=== PATIENT | male | born 1940 | race Caucasian/White ===

== ENCOUNTER 2016-06-09 15:00 | Emergency (ER) | payer MEDICARE ==
[2016-06-09] MEDS ORDERED: methylPREDNISolone SUCCINATE 40 MG/ML VIAL IVP STA (15:42)
[2016-06-09] MEDS ORDERED: methylPREDNISolone SUCCINATE 40 MG/ML VIAL ONE (16:09)
[2016-06-09] MEDS ORDERED: IOPAMIDOL-300 100 ML VIAL IVP ONE (17:16)
[2016-06-09] MEDS ORDERED: SODIUM CHLORIDE FLUSH 0.9% 10 ML SYRINGE IVP PRN (17:37)
[2016-06-09] MEDS ORDERED: PANTOPRAZOLE 40 MG VIAL IVP SCH (18:00)
[2016-06-09] MEDS ORDERED: SODIUM CHLORIDE 0.9% 1,000 ML IV SCH (18:00)
[2016-06-09] MEDS ORDERED: SODIUM CHLORIDE FLUSH 0.9% 10 ML SYRINGE IVP SCH (22:00)
[2016-06-10] MEDS ORDERED: POLYETHYLENE GLYCOL 3350 17 GM PACKET PO SCH (09:00)
== END 2016-06-09 21:04 | disposition left against medical advice (07) ==
DX: K92.1 Melena (principal); K51.011 Ulcerative (chronic) pancolitis with rectal bleeding; D64.9 Anemia, unspecified; G20 Parkinson's disease; Z53.20 Procedure and treatment not carried out because of patient's decision for unspecified reasons
CPT/HCPCS: 36415; 36430; 74177; 80053; 83690; 85025; 85610; 86850; 86900; 86901; 86920; 96374; 99283; 99285; P9016; Q9967

== ENCOUNTER 2016-06-10 | Outpatient (CLI) | payer MEDICARE | END 2016-06-10 15:26 | disposition critical access hospital (66) | CPT/HCPCS: A0425; A0427 ==

== ENCOUNTER 2016-06-10 | Outpatient (CLI) | payer MEDICARE | END 2016-06-10 18:23 | disposition short-term general hospital (02) | DX: K92.1 Melena (principal) | CPT/HCPCS: A0170; A0425; A0427 ==

== ENCOUNTER 2016-06-10 15:46 | Emergency (ER) | payer MEDICARE | END 2016-06-10 18:20 | disposition short-term general hospital (02) | DX: K51.011 Ulcerative (chronic) pancolitis with rectal bleeding (principal) | CPT/HCPCS: 36415; 36430; 80053; 83605; 83690; 85025; 85610; 86850; 86900; 86901; 86920; 99284; 99291; P9016 ==

== ENCOUNTER 2017-01-07 07:18 | Outpatient (CLI) | payer MEDICARE ==
[2017-01-07 14:09] LABS: CALCIUM 8.6 mg/dL (8.5-10.3); CREATININE 0.8 mg/dL (0.6-1.2); POTASSIUM 3.6 mmol/L (3.5-5.0)
== END 2017-01-07 07:19 | disposition home or self-care (01) ==
LOC: LAB.F 07:18
PROVIDERS: ATTEND Internal Medicine Gastroenterology
DX: K50.80 Crohn's disease of both small and large intestine without complications (principal)
CPT/HCPCS: 36415; 80048; 86140

== ENCOUNTER 2017-04-30 08:00 | Outpatient (CLI) | payer MEDICARE ==
[2017-04-30 10:34] LABS: BASOPHILS # (AUTO) 0.1 10^3/uL (0.0-0.1); BASOPHILS % (AUTO) 1.2 %; EOSINOPHILS # (AUTO) 0.5 10^3/uL (0.0-0.7); EOSINOPHILS % (AUTO) 7.2 %; HGB - HEMOGLOBIN 11.2 g/dL (14.0-18.0); LYMPHOCYTES # (AUTO) 1.6 10^3/uL (1.5-3.5); MEAN CORPUSCULAR HEMOGLOBIN 29.7 pg (27.0-31.0); MEAN CORPUSCULAR HGB CONC 32.7 g/dL (32.0-36.0); MEAN CORPUSCULAR VOLUME 90.6 fL (80.0-94.0); MEAN PLATELET VOLUME 9.5 fL (7.4-11.4); MONOCYTES # (AUTO) 0.7 10^3/uL (0.0-1.0); MONOCYTES % (AUTO) 8.9 %; NEUTROPHILS # (AUTO) 4.7 10^3/uL (1.5-6.6); NEUTROPHILS % (AUTO) 61.7 %; PLT - PLATELET COUNT 378 10^3/uL (130-450); RED BLOOD COUNT 3.76 10^6/uL (4.70-6.10); RED CELL DISTRIBUTION WIDTH 16.5 % (12.0-15.0); WHITE BLOOD COUNT 7.5 x10^3/uL (4.8-10.8)
[2017-04-30 11:05] LABS: PLATELET ESTIMATE, MANUAL NORMAL (130-450,000) (NORMAL); PLATELET MORPHOLOGY 1+ LARGE PLATELETS (NORMAL); RBC MORPHOLOGY (MULTIPLE) NORMAL APPEARANCE (NORMAL)
== END 2017-04-30 08:01 | disposition home or self-care (01) ==
LOC: LAB.F 08:00
PROVIDERS: ATTEND Internal Medicine Gastroenterology
DX: K50.80 Crohn's disease of both small and large intestine without complications (principal); R74.8 Abnormal levels of other serum enzymes; D50.0 Iron deficiency anemia secondary to blood loss (chronic)
CPT/HCPCS: 36415; 85025

== ENCOUNTER 2017-10-25 08:03 | Outpatient (CLI) | payer MEDICARE ==
[2017-10-25 13:06] LABS: ALBUMIN/GLOBULIN RATIO 0.4 (1.0-2.2); BILIRUBIN,TOTAL 1.6 mg/dL (0.2-1.0); CALCIUM 7.8 mg/dL (8.5-10.3); CREATININE 0.9 mg/dL (0.6-1.2)
== END 2017-10-25 08:04 | disposition home or self-care (01) ==
LOC: LAB.F 08:03
PROVIDERS: ATTEND Internal Medicine Gastroenterology
DX: R74.8 Abnormal levels of other serum enzymes (principal); K50.80 Crohn's disease of both small and large intestine without complications; D64.9 Anemia, unspecified
CPT/HCPCS: 36415; 80053; 85610

== ENCOUNTER 2017-10-28 12:45 | Outpatient (CLI) | payer MEDICARE ==
[2017-10-28 19:11] LABS: % IRON SATURATION 6 % (20-50); IRON 18 ug/dL (45-182); TOTAL IRON BINDING CAPACITY 322 ug/dL (250-450); TRANSFERRIN 230 mg/dL (180-329)
[2017-10-28 19:15] LABS: THYROID STIMULATING HORMONE 4.45 uIU/mL (0.34-5.60)
[2017-10-28 19:22] LABS: FERRITIN 17.9 ng/mL (23.9-336.2)
== END 2017-10-28 12:46 | disposition home or self-care (01) ==
LOC: LAB.WCP 12:45
PROVIDERS: ATTEND Family Medicine
DX: D64.9 Anemia, unspecified (principal); K51.90 Ulcerative colitis, unspecified, without complications; I50.9 Heart failure, unspecified; R74.8 Abnormal levels of other serum enzymes
CPT/HCPCS: 82607; 82728; 83540; 83880; 84443; 84466

== ENCOUNTER 2017-11-01 08:17 | Outpatient (CLI) | payer MEDICARE ==
[2017-11-01 12:13] LABS: BASOPHILS % (AUTO) 2.4 %; EOSINOPHILS % (AUTO) 3.6 %; HGB - HEMOGLOBIN 9.2 g/dL (14.0-18.0); LYMPHOCYTES % (AUTO) 22.7 %; MEAN CORPUSCULAR HEMOGLOBIN 30.5 pg (27.0-31.0); MEAN CORPUSCULAR HGB CONC 31.4 g/dL (32.0-36.0); MEAN CORPUSCULAR VOLUME 97.3 fL (80.0-94.0); MEAN PLATELET VOLUME 8.9 fL (7.4-11.4); MONOCYTES % (AUTO) 9.4 %; NEUTROPHILS % (AUTO) 61.9 %; PLT - PLATELET COUNT 493 10^3/uL (130-450); RED BLOOD COUNT 3.02 10^6/uL (4.70-6.10); RED CELL DISTRIBUTION WIDTH 14.5 % (12.0-15.0)
[2017-11-01 12:35] LABS: ABNORMAL LYMPHS % (MANUAL) 0 %
[2017-11-01 13:20] LABS: BAND NEUTROPHILS % (MANUAL) 3 %; EOSINOPHILS # (MANUAL) 0.2 10^3/uL (0-0.7); LYMPHOCYTES # (MANUAL) 1.6 10^3/uL (1.5-3.5); LYMPHOCYTES % (MANUAL) 18 %; MONOCYTES # (MANUAL) 0.9 10^3/uL (0.0-1.0); NEUTROPHILS # (MANUAL) 6.3 10^3/uL (1.5-6.6); NEUTROPHILS % (MANUAL) 67 %
[2017-11-01 13:22] LABS: PLATELET ESTIMATE, MANUAL INCREASED (>450,000) (NORMAL)
[2017-11-01 13:23] LABS: DIFFERENTIAL COMMENT MANUAL DIFFERENTIAL; PLATELET MORPHOLOGY 1+ GIANT PLATELETS (NORMAL)
== END 2017-11-01 08:18 | disposition home or self-care (01) ==
LOC: LAB.F 08:17
PROVIDERS: ATTEND Internal Medicine Gastroenterology
DX: R74.8 Abnormal levels of other serum enzymes (principal); D64.9 Anemia, unspecified; K50.80 Crohn's disease of both small and large intestine without complications
CPT/HCPCS: 36415; 85025

== ENCOUNTER 2017-11-05 07:46 | Outpatient (CLI) | payer MEDICARE ==
--- NOTE | 2017-11-05 11:07 | Ultrasound Report ---
Procedure Date: 11/05/2017 Accession Number: [id number] / [id number] Procedure: US - Duplex Ext Veins Left CPT Code: FULL RESULT: EXAM: Duplex Ext Veins Left DATE: 11/05/2017 10:07 AM CLINICAL HISTORY: PEDAL EDEMA/ELEVATED LIVER ENZYMES, ULC COLITIS COMPARISON: None. TECHNIQUE: Real-time sonographic vascular imaging was performed by the personal service workers through the lower extremity utilizing both color-flow and Doppler spectral analysis. Multiple field service representative static images were saved for review. FINDINGS: Common Femoral Vein (CFV): Normal. Superficial Femoral Vein (SFV) Prox: Normal. Superficial Femoral Vein (SFV) Mid: Normal. Superficial Femoral Vein (SFV) Dist: Normal. Popliteal Vein: Normal. Posterior Tibial Veins: Normal. Peroneal Veins: Normal. Other: Incidental note of subcutaneous edema in the calf. IMPRESSION: No evidence for deep venous thrombosis. RADIA
--- NOTE | 2017-11-05 12:15 | Ultrasound Report ---
Procedure Date: 11/05/2017 Accession Number: [id number] / [id number] Procedure: US - Abdomen Complete CPT Code: FULL RESULT: EXAM: Abdomen Complete DATE: 11/05/2017 9:30 AM CLINICAL HISTORY: PEDAL EDEMA/ELEVATED LIVER ENZYMES, ULC COLITIS COMPARISON: CT 06/09/2016 TECHNIQUE: Real-time scanning was performed with static images obtained. FINDINGS: Liver: Heterogeneous hepatic echotexture. 15.6 cm. Main portal vein flow: Hepatopetal. Gallbladder: Sludge within the lumen. No shadowing stone identified. No wall thickening or pericholecystic fluid. Biliary System: Common bile duct measures 14 mm. Stable intra and extrahepatic biliary prominence. Sludge within the common bile duct. Pancreas: 2 small hypoechoic nodules, in the body measuring 1.0 x 0.7 x 0.5 cm, and in the head measuring 1.6 x 0.8 x 0.7 cm, likely representing small pancreatic cysts. If clinically warranted, consider MRI for further evaluation. Kidneys: Right: 10.7 cm longitudinally. 6 mm cortical cyst. Possible calculi. No hydronephrosis. Left: 10.0 cm longitudinally. 8 mm parapelvic cyst. Possible calculi. No hydronephrosis. Spleen: Diminutive, measuring 4 cm. No focal mass. Aorta and Inferior Vena Cava: Unremarkable. IMPRESSION: Sludge within the gallbladder and common bile duct. Stable biliary prominence. Tiny hypoechoic nodules in the pancreas, which may represent pancreatic cysts. Consider MRI for further evaluation. Bilateral renal calculi, without hydronephrosis. RADIA
== END 2017-11-05 07:47 | disposition home or self-care (01) ==
LOC: DI 07:46
PROVIDERS: ATTEND Family Medicine
DX: R60.0 Localized edema (principal); R74.8 Abnormal levels of other serum enzymes; K51.90 Ulcerative colitis, unspecified, without complications; N20.0 Calculus of kidney
CPT/HCPCS: 76700

== ENCOUNTER 2017-11-14 09:03 | Day surgery (SDC) | payer MEDICARE ==
[2017-11-14] MEDS ORDERED: LACTATED RINGERS 1,000 ML IV ONE ×2 (09:46→10:51)
[2017-11-14] MEDS ORDERED: fentaNYL 100 MCG/2 ML VIAL IVP ONE (10:04)
[2017-11-14] MEDS ORDERED: MIDAZOLAM 2 MG/2 ML VIAL IVP ONE (10:04)
[2017-11-14 11:30] VITALS: BP 105/66
== END 2017-11-14 09:04 | disposition home or self-care (01) ==
LOC: SDS 09:03
PROVIDERS: ATTEND Internal Medicine Gastroenterology
PROC: 0DBM8ZX Excision of Descending Colon, Via Natural or Artificial Opening Endoscopic, Diagnostic (ICD-10-PCS; 2017-11-14)
PROC: 0DBE8ZX Excision of Large Intestine, Via Natural or Artificial Opening Endoscopic, Diagnostic (ICD-10-PCS; 2017-11-14)
PROC: 0DBB8ZZ Excision of Ileum, Via Natural or Artificial Opening Endoscopic (ICD-10-PCS; principal; 2017-11-14 10:00)
DX: K50.80 Crohn's disease of both small and large intestine without complications (principal); D13.39 Benign neoplasm of other parts of small intestine; D50.9 Iron deficiency anemia, unspecified; G20 Parkinson's disease; Z79.1 Long term (current) use of non-steroidal anti-inflammatories (NSAID); Z79.899 Other long term (current) drug therapy
CPT/HCPCS: 45380; 45385; J7120

== ENCOUNTER 2017-12-20 07:46 | Outpatient (CLI) | payer MEDICARE ==
[2017-12-20 10:58] LABS: BASOPHILS # (AUTO) 0.1 10^3/uL (0.0-0.1); BASOPHILS % (AUTO) 0.7 %; EOSINOPHILS % (AUTO) 0.3 %; HGB - HEMOGLOBIN 10.4 g/dL (14.0-18.0); LYMPHOCYTES # (AUTO) 1.3 10^3/uL (1.5-3.5); LYMPHOCYTES % (AUTO) 12.5 %; MEAN CORPUSCULAR HEMOGLOBIN 30.5 pg (27.0-31.0); MEAN CORPUSCULAR HGB CONC 32.6 g/dL (32.0-36.0); MEAN CORPUSCULAR VOLUME 93.5 fL (80.0-94.0); MEAN PLATELET VOLUME 9.3 fL (7.4-11.4); MONOCYTES # (AUTO) 0.8 10^3/uL (0.0-1.0); MONOCYTES % (AUTO) 7.6 %; NEUTROPHILS % (AUTO) 78.9 %; PLT - PLATELET COUNT 312 10^3/uL (130-450); RED BLOOD COUNT 3.42 10^6/uL (4.70-6.10); WHITE BLOOD COUNT 10.2 x10^3/uL (4.8-10.8)
== END 2017-12-20 07:47 | disposition home or self-care (01) ==
LOC: LAB.F 07:46
PROVIDERS: ATTEND Internal Medicine Gastroenterology
DX: D50.0 Iron deficiency anemia secondary to blood loss (chronic) (principal)
CPT/HCPCS: 36415; 85025

== ENCOUNTER 2018-01-17 07:26 | Outpatient (CLI) | payer MEDICARE | END 2018-01-17 07:27 | disposition home or self-care (01) | LOC: LAB.F 07:26 | PROVIDERS: ATTEND Internal Medicine Gastroenterology | DX: K50.80 Crohn's disease of both small and large intestine without complications (principal); D50.0 Iron deficiency anemia secondary to blood loss (chronic); R74.8 Abnormal levels of other serum enzymes ==

== ENCOUNTER 2018-05-19 09:37 | Outpatient (CLI) | payer MEDICARE ==
[2018-05-19 18:22] LABS: BASOPHILS % (AUTO) 4.7 %; HGB - HEMOGLOBIN 11.2 g/dL (14.0-18.0); LYMPHOCYTES % (AUTO) 34.8 %; MEAN CORPUSCULAR HEMOGLOBIN 32.1 pg (27.0-31.0); MEAN CORPUSCULAR HGB CONC 31.5 g/dL (32.0-36.0); MEAN CORPUSCULAR VOLUME 102.1 fL (80.0-94.0); MEAN PLATELET VOLUME 10.6 fL (7.4-11.4); MONOCYTES % (AUTO) 11.4 %; NEUTROPHILS % (AUTO) 45.1 %; PLT - PLATELET COUNT 294 10^3/uL (130-450); RED BLOOD COUNT 3.47 10^6/uL (4.70-6.10); RED CELL DISTRIBUTION WIDTH 14.6 % (12.0-15.0); WHITE BLOOD COUNT 6.5 x10^3/uL (4.8-10.8)
[2018-05-19 18:23] LABS: ABNORMAL LYMPHS % (MANUAL) 0 %; BAND NEUTROPHILS % (MANUAL) 0 %
[2018-05-19 18:29] LABS: ALBUMIN 2.3 g/dL (3.2-5.5); ALBUMIN/GLOBULIN RATIO 0.4 (1.0-2.2); BILIRUBIN,TOTAL 8.5 mg/dL (0.2-1.0); CALCIUM 8.5 mg/dL (8.5-10.3); CREATININE 0.7 mg/dL (0.6-1.2); CRP - C-REACTIVE PROTEIN 5.9 mg/dL (0-1.0); TOTAL PROTEIN 7.8 g/dL (6.7-8.2)
[2018-05-19 20:08] LABS: EOSINOPHILS # (MANUAL) 0.4 10^3/uL (0-0.7); LYMPHOCYTES # (MANUAL) 1.2 10^3/uL (1.5-3.5); LYMPHOCYTES % (MANUAL) 18 %; MONOCYTES # (MANUAL) 0.5 10^3/uL (0.0-1.0); NEUTROPHILS # (MANUAL) 4.4 10^3/uL (1.5-6.6); NEUTROPHILS % (MANUAL) 68 %
[2018-05-19 20:20] LABS: DIFFERENTIAL COMMENT MANUAL DIFFERENTIAL; PLATELET ESTIMATE, MANUAL NORMAL (130-450,000) (NORMAL)
== END 2018-05-19 09:38 | disposition home or self-care (01) ==
LOC: LAB.F 09:37
PROVIDERS: ATTEND Internal Medicine Gastroenterology
DX: K50.80 Crohn's disease of both small and large intestine without complications (principal); D50.0 Iron deficiency anemia secondary to blood loss (chronic); R74.8 Abnormal levels of other serum enzymes
CPT/HCPCS: 36415; 80053; 85025; 86140

== ENCOUNTER 2018-06-30 08:33 | Outpatient (CLI) | payer MEDICARE ==
[2018-06-30 10:36] LABS: BASOPHILS # (AUTO) 0.1 10^3/uL (0.0-0.1); BASOPHILS % (AUTO) 0.9 %; EOSINOPHILS # (AUTO) 0.2 10^3/uL (0.0-0.7); EOSINOPHILS % (AUTO) 2.6 %; HGB - HEMOGLOBIN 9.6 g/dL (14.0-18.0); LYMPHOCYTES # (AUTO) 4.3 10^3/uL (1.5-3.5); LYMPHOCYTES % (AUTO) 65.8 %; MEAN CORPUSCULAR HEMOGLOBIN 29.6 pg (27.0-31.0); MEAN CORPUSCULAR HGB CONC 32.3 g/dL (32.0-36.0); MEAN CORPUSCULAR VOLUME 91.7 fL (80.0-94.0); MEAN PLATELET VOLUME 10.2 fL (7.4-11.4); MONOCYTES # (AUTO) 0.6 10^3/uL (0.0-1.0); NEUTROPHILS # (AUTO) 1.4 10^3/uL (1.5-6.6); NEUTROPHILS % (AUTO) 21.7 %; PLT - PLATELET COUNT 322 10^3/uL (130-450); RED BLOOD COUNT 3.24 10^6/uL (4.70-6.10); RED CELL DISTRIBUTION WIDTH 16.1 % (12.0-15.0); WHITE BLOOD COUNT 6.6 x10^3/uL (4.8-10.8)
[2018-06-30 10:40] LABS: INR 1.2 (0.8-1.2); PT - PROTHROMBIN TIME 13.1 secs (9.9-12.6)
[2018-06-30 11:10] LABS: ALBUMIN 2.2 g/dL (3.2-5.5); ALBUMIN/GLOBULIN RATIO 0.4 (1.0-2.2); BILIRUBIN,TOTAL 6.2 mg/dL (0.2-1.0); CREATININE 0.8 mg/dL (0.6-1.2); TOTAL PROTEIN 7.5 g/dL (6.7-8.2)
[2018-06-30 11:24] LABS: PLATELET ESTIMATE, MANUAL NORMAL (130-450,000) (NORMAL); PLATELET MORPHOLOGY 1+ GIANT PLATELETS (NORMAL)
[2018-06-30 11:25] LABS: RBC MORPHOLOGY (MULTIPLE) 2+ TARGET CELLS (NORMAL)
== END 2018-06-30 08:34 | disposition home or self-care (01) ==
LOC: LAB.F 08:33
PROVIDERS: ATTEND Internal Medicine Gastroenterology
DX: K83.1 Obstruction of bile duct (principal); K50.80 Crohn's disease of both small and large intestine without complications; D50.0 Iron deficiency anemia secondary to blood loss (chronic); R74.8 Abnormal levels of other serum enzymes; R60.0 Localized edema
CPT/HCPCS: 36415; 80053; 85025; 85610

== ENCOUNTER 2018-07-25 08:00 | Outpatient (CLI) | payer MEDICARE ==
[2018-07-25 10:52] LABS: ALBUMIN 2.1 g/dL (3.2-5.5); ALBUMIN/GLOBULIN RATIO 0.4 (1.0-2.2); BILIRUBIN,TOTAL 5.1 mg/dL (0.2-1.0); CALCIUM 8.1 mg/dL (8.5-10.3); CREATININE 0.8 mg/dL (0.6-1.2); INR 1.2 (0.8-1.2); PT - PROTHROMBIN TIME 13.5 secs (9.9-12.6); TOTAL PROTEIN 7.3 g/dL (6.7-8.2)
[2018-07-25 11:12] LABS: BASOPHILS % (AUTO) 2.4 %; EOSINOPHILS % (AUTO) 1.7 %; HGB - HEMOGLOBIN 8.6 g/dL (14.0-18.0); LYMPHOCYTES % (AUTO) 71.6 %; MEAN CORPUSCULAR HEMOGLOBIN 27.1 pg (27.0-31.0); MEAN CORPUSCULAR HGB CONC 31.5 g/dL (32.0-36.0); MEAN CORPUSCULAR VOLUME 86.1 fL (80.0-94.0); MEAN PLATELET VOLUME 10.2 fL (7.4-11.4); NEUTROPHILS % (AUTO) 19.3 %; PLT - PLATELET COUNT 346 10^3/uL (130-450); RED BLOOD COUNT 3.17 10^6/uL (4.70-6.10); RED CELL DISTRIBUTION WIDTH 16.8 % (12.0-15.0); WHITE BLOOD COUNT 6.2 x10^3/uL (4.8-10.8)
[2018-07-25 12:21] LABS: ABNORMAL LYMPHS % (MANUAL) 0 %
[2018-07-25 12:22] LABS: BAND NEUTROPHILS % (MANUAL) 1 %; BASOPHILS # (MANUAL) 0.1 10^3/uL (0-0.1); BASOPHILS % (MANUAL) 1 %; EOSINOPHILS # (MANUAL) 0.4 10^3/uL (0-0.7); LYMPHOCYTES # (MANUAL) 1.6 10^3/uL (1.5-3.5); LYMPHOCYTES % (MANUAL) 23 %; MONOCYTES # (MANUAL) 0.6 10^3/uL (0.0-1.0); NEUTROPHILS # (MANUAL) 3.6 10^3/uL (1.5-6.6); NEUTROPHILS % (MANUAL) 57 %
[2018-07-25 12:23] LABS: PLATELET ESTIMATE, MANUAL NORMAL (130-450,000) (NORMAL); PLATELET MORPHOLOGY RARE GIANT PLATELETS (NORMAL)
[2018-07-25 12:24] LABS: DIFFERENTIAL COMMENT MANUAL DIFFERENTIAL
== END 2018-07-25 08:01 | disposition home or self-care (01) ==
LOC: LAB.F 08:00
PROVIDERS: ATTEND Internal Medicine Gastroenterology
DX: K83.1 Obstruction of bile duct (principal); K50.80 Crohn's disease of both small and large intestine without complications; D50.0 Iron deficiency anemia secondary to blood loss (chronic); R74.8 Abnormal levels of other serum enzymes
CPT/HCPCS: 36415; 80053; 82306; 84446; 84590; 85025; 85610

== ENCOUNTER 2018-08-08 08:33 | Outpatient (CLI) | payer MEDICARE ==
[2018-08-08 10:49] LABS: EOSINOPHILS % (AUTO) 1.2 %; HGB - HEMOGLOBIN 9.2 g/dL (14.0-18.0); LYMPHOCYTES % (AUTO) 68.6 %; MEAN CORPUSCULAR HGB CONC 30.9 g/dL (32.0-36.0); MEAN CORPUSCULAR VOLUME 84.3 fL (80.0-94.0); MEAN PLATELET VOLUME 9.9 fL (7.4-11.4); MONOCYTES % (AUTO) 16.1 %; NEUTROPHILS % (AUTO) 14.1 %; PLT - PLATELET COUNT 378 10^3/uL (130-450); RED BLOOD COUNT 3.54 10^6/uL (4.70-6.10); RED CELL DISTRIBUTION WIDTH 17.6 % (12.0-15.0); WHITE BLOOD COUNT 7.3 x10^3/uL (4.8-10.8)
[2018-08-08 10:50] LABS: ABNORMAL LYMPHS % (MANUAL) 0 %; BAND NEUTROPHILS % (MANUAL) 0 %; INR 1.1 (0.8-1.2); PT - PROTHROMBIN TIME 12.8 secs (9.9-12.6)
[2018-08-08 11:08] LABS: ALBUMIN 2.3 g/dL (3.2-5.5); ALBUMIN/GLOBULIN RATIO 0.4 (1.0-2.2); BILIRUBIN,TOTAL 5.3 mg/dL (0.2-1.0); CALCIUM 8.4 mg/dL (8.5-10.3); CREATININE 0.7 mg/dL (0.6-1.2); TOTAL PROTEIN 7.9 g/dL (6.7-8.2)
[2018-08-08 11:22] LABS: BASOPHILS # (MANUAL) 0.1 10^3/uL (0-0.1); BASOPHILS % (MANUAL) 2 %; EOSINOPHILS # (MANUAL) 0.2 10^3/uL (0-0.7); LYMPHOCYTES # (MANUAL) 1.9 10^3/uL (1.5-3.5); LYMPHOCYTES % (MANUAL) 26 %; MONOCYTES # (MANUAL) 0.3 10^3/uL (0.0-1.0); NEUTROPHILS # (MANUAL) 4.7 10^3/uL (1.5-6.6); NEUTROPHILS % (MANUAL) 65 %
[2018-08-08 11:24] LABS: DIFFERENTIAL COMMENT MANUAL DIFFERENTIAL; PLATELET ESTIMATE, MANUAL NORMAL (130-450,000) (NORMAL)
[2018-08-11 21:48] LABS: ALPHA-TOCOPHEROL 14.9 mg/L (5.7-19.9); BETA-GAMMA-TOCOPHEROL <1.0 mg/L (< 4.4)
== END 2018-08-08 08:34 | disposition home or self-care (01) ==
LOC: LAB.F 08:33
PROVIDERS: ATTEND Internal Medicine Gastroenterology
DX: K83.1 Obstruction of bile duct (principal); D50.0 Iron deficiency anemia secondary to blood loss (chronic); R74.8 Abnormal levels of other serum enzymes; K50.80 Crohn's disease of both small and large intestine without complications
CPT/HCPCS: 36415; 80053; 82306; 84446; 84590; 85025; 85610

== ENCOUNTER 2019-03-22 13:36 | Emergency (ER) | payer MEDICARE ==
[2019-03-22] MEDS ORDERED: TRANEXAMIC ACID 1,000 MG/10 ML VIAL NAS STA (15:10)
[2019-03-22 15:24] LABS: BASOPHILS # (AUTO) 0.1 10^3/uL (0.0-0.1); BASOPHILS % (AUTO) 0.6 %; MONOCYTES # (AUTO) 0.9 10^3/uL (0.0-1.0)
[2019-03-22 15:28] LABS: EOSINOPHILS # (AUTO) 0.1 10^3/uL (0.0-0.7); EOSINOPHILS % (AUTO) 1.1 %; LYMPHOCYTES # (AUTO) 1.4 10^3/uL (1.5-3.5); LYMPHOCYTES % (AUTO) 17.7 %; MEAN CORPUSCULAR HEMOGLOBIN 30.6 pg (27.0-31.0); MEAN CORPUSCULAR HGB CONC 32.2 g/dL (32.0-36.0); MEAN CORPUSCULAR VOLUME 95.3 fL (80.0-94.0); MEAN PLATELET VOLUME 11.8 fL (7.4-11.4); MONOCYTES % (AUTO) 11.8 %; NEUTROPHILS # (AUTO) 5.4 10^3/uL (1.5-6.6); NEUTROPHILS % (AUTO) 68.4 %; PLT - PLATELET COUNT 300 10^3/uL (130-450); RED BLOOD COUNT 3.59 10^6/uL (4.70-6.10); RED CELL DISTRIBUTION WIDTH 19.7 % (12.0-15.0)
[2019-03-22 15:32] LABS: INR 2.4 (0.8-1.2); PT - PROTHROMBIN TIME 25.5 secs (9.9-12.6)
[2019-03-22] MEDS ORDERED: PHYTONADIONE 10 MG/ML AMP SUBQ STA (15:43)
[2019-03-22 16:03] LABS: ALBUMIN 2.6 g/dL (3.2-5.5); ALBUMIN/GLOBULIN RATIO 0.5 (1.0-2.2); BILIRUBIN,TOTAL 9.6 mg/dL (0.2-1.0); CALCIUM 8.1 mg/dL (8.5-10.3); CREATININE 0.8 mg/dL (0.6-1.2); TOTAL PROTEIN 7.9 g/dL (6.7-8.2)
[2019-03-22 16:21] LABS: PLATELET ESTIMATE, MANUAL NORMAL (130-450,000) (NORMAL); PLATELET MORPHOLOGY NORMAL APPEARANCE (NORMAL)
[2019-03-22 16:22] LABS: DIFFERENTIAL COMMENT MANUAL=AUTO DIFF
--- NOTE | 2019-03-22 16:34 | ED Physician Documentation ---
PD HPI HEENT - Stated complaint Stated Complaint: BLEEDING MOUTH - Chief complaint Chief Complaint: General - History obtained from History obtained from: Patient, Family - History of Present Illness Timing - onset: Last night Timing - duration: Hours Timing - details: Gradual onset, Still present Location: Mouth Improves: Other (pressure with gauze) Associated symptoms: No: Fever, Congestion, Rhinorrhea, Trismus, Unable to swallow, Swollen nodes, Facial swelling, Headache, Cough Similar symptoms before: Has not had sx before Recently seen: Other (preparing for ERCP) - Additional information Additional information: 78-year-old male with history of Crohn's disease and gallbladder cancer has had his gallbladder out in September of this year and he has cholestasis, has had a stent in place, the stent failed, and he is in preparation to get another stent placed. He has now developed some bleeding from his mouth. He has not had this happen to him previously. He felt that he had a broken tooth last month and today he thinks this is coming from the abraded area in his mouth. He has been putting gauze in it overnight and is only been able to get the area to stop if he lays on his left side. He is having bleeding from the inside of his right mouth. Review of Systems Constitutional: denies: Fever Eyes: denies: Decreased vision Ears: denies: Ear pain Nose: denies: Rhinorrhea / runny nose, Congestion Throat: reports: Dental pain / toothache, Oral lesions / sores, Other (bleeding from the gums) Cardiac: denies: Chest pain / pressure, Palpitations Respiratory: denies: Dyspnea, Cough GI: denies: Nausea, Vomiting PD PAST MEDICAL HISTORY - Past Medical History Past Medical History: Yes Cardiovascular: None Respiratory: None Neuro: Parkinson's, Tremors Endocrine/Autoimmune: None GI: GI bleed : None HEENT: Chronic hearing loss Psych: None Musculoskeletal: Osteoarthritis, Other Derm: None - Past Surgical History Past Surgical History: Yes General: Colonoscopy Ortho: Other - Present Medications Home Medications: Ambulatory Orders Medication Instructions Recorded Confirmed Ascorbic Acid [Vitamin C] 1 tab PO DAILY 03/14/16 12/10/17 Centrum Silver 1 tab PO DAILY 03/14/16 12/10/17 Ferrous Sulfate 1 tab PO DAILY 03/14/16 12/10/17 Potassium Chloride [Micro-K] 1 tab PO DAILY PRN 03/14/16 12/10/17 Carbidopa/Levodopa 2 each PO TID 11/13/17 12/10/17 [Carbidopa-Levodopa 10-100 Tab] Furosemide [Lasix] 1 - 2 tab PO PRN PRN 11/13/17 12/10/17 Glucosamine Sulfate 500 mg PO DAILY 11/13/17 12/10/17 Acetaminophen [Tylenol Extra 500 mg PO BID 12/10/17 12/10/17 Strength] Balsalazide Disodium 2 cap ORAL BID 12/10/17 12/10/17 Ferrous Sulfate 15 mg PO DAILY 12/10/17 12/10/17 predniSONE [Prednisone] 40 mg PO DAILY 12/10/17 12/10/17 - Allergies Allergies/Adverse Reactions: Allergies Allergy/AdvReac Type Severity Reaction Status Date / Time NSAIDS (Non-Steroidal AdvReac Severe Unknown Verified 12/10/17 09:29 Anti-Inflamma - Social History Does the pt smoke?: No Smoking Status: Never smoker Does the pt drink ETOH?: No Does the pt have substance abuse?: No - Immunizations Immunizations are current?: Yes - POLST Patient has POLST: Yes PD ED PE NORMAL - Vitals Vital signs reviewed: Yes (normal ) - General General: Alert and oriented X 3, No acute distress, Well developed/nourished - HEENT HEENT: Atraumatic, PERRL, EOMI, Other (There is scleral iterus present. There is bleeding in the oral cavity initially difficult to figure where this is coming from as it is in all the crevises of the teeth. eventually it appears the main site is from the subligual area. ) - Neck Neck: Supple, no meningeal sign, No bony TTP - Cardiac Cardiac: RRR, No murmur - Respiratory Respiratory: No respiratory distress, Clear bilaterally - Derm Derm: Warm and dry, Other (jaundiced) Results - Vitals Vitals: Vital Signs - 24 hr 03/22/19 13:47 Temperature 36.8 C Heart Rate 87 Respiratory 18 Rate Blood Pressure 108/79 O2 Saturation 98 Oxygen O2 Source Room air - Labs Labs: Laboratory Tests 03/22/19 03/22/19 03/22/19 15:20 15:20 15:20 WBC 8.0 RBC 3.59 L Hgb 11.0 L Hct 34.2 L MCV 95.3 H MCH 30.6 MCHC 32.2 RDW 19.7 H Plt Count 300 MPV 11.8 H Neut # (Auto) 5.4 Lymph # (Auto) 1.4 L Lamar # (Auto) 0.9 Eos # (Auto) 0.1 Baso # (Auto) 0.1 Absolute Nucleated RBC 0.00 Band Neuts % (Manual) Not Reportable Abnorm Lymph % (Manual) Not Reportable Nucleated RBC % 0.0 Neutrophils # (Manual) Not Reportable Lymphocytes # (Manual) Not Reportable Monocytes # (Manual) Not Reportable Eosinophils # (Manual) Not Reportable Basophils # (Manual) Not Reportable Differential Comment MANUAL=AUTO DIFF WBC Morphology NORMAL APPEARANCE Platelet Estimate NORMAL (130-450,000) Platelet Morphology NORMAL APPEARANCE RBC Morph Micro Appear 1+ TARGET CELLS PT 25.5 H INR 2.4 H Sodium 135 Potassium 3.8 Chloride 103 Carbon Dioxide 28 Anion Gap 4.0 L BUN 20 Creatinine 0.8 Estimated GFR (MDRD) 94 Glucose 107 H Calcium 8.1 L Total Bilirubin 9.6 H AST 153 H ALT 33 Alkaline Phosphatase 1286 H Total Protein 7.9 Albumin 2.6 L Globulin 5.3 H Albumin/Globulin Ratio 0.5 L Lipase 35 PD MEDICAL DECISION MAKING - ED course Complexity details: reviewed old records, reviewed results, re-evaluated patient, considered differential, d/w patient, d/w family ED course: 78-year-old male with 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 His mouth is packed with gauze and tranexamic acid is applied and he is subsequently given dental rolls which appear to be more effective than any other method. He is able good control of his bleeding. He is found to have an elevated INR but the level is only 2.5 and he is administered 10 mg of vitamin K subcutaneously. His hematocrit is higher than what he is brought in as his most recent blood work from several weeks ago. He is reassured and instructed to place pressure against bleeding if it recurs and he is given a package of dental rolls. Departure - Departure Disposition: 01 Home, Self Care Clinical Impression: Gingival bleeding Condition: Stable Instructions: First Aid Bleeding, Gingivitis Follow-Up: Anthony Zee MD [Primary Care Provider] - Comments: Today your "INR" was elevated to 2.5 and this is a measure of your ability to clot. Normal is 1.0 and dangerous is 7. When it is elevated it is harder to stop bleeding. You will need to apply direct pressure for a longer period of time. We have given you a shot of vitamin K today and this should help.
[2019-03-22 16:44] VITALS: BP 106/74
== END 2019-03-22 16:46 | disposition home or self-care (01) ==
LOC: ED 13:36
DX: K06.8 Other specified disorders of gingiva and edentulous alveolar ridge (principal); K13.79 Other lesions of oral mucosa; R79.1 Abnormal coagulation profile; K71.0 Toxic liver disease with cholestasis; Z85.09 Personal history of malignant neoplasm of other digestive organs; G20 Parkinson's disease
CPT/HCPCS: 36415; 80053; 83690; 85025; 85610; 96372; 99283; 99284

== ENCOUNTER 2019-06-09 07:50 | Outpatient (CLI) | payer MEDICARE ==
[2019-06-09 10:48] LABS: ALBUMIN 2.1 g/dL (3.2-5.5); BILIRUBIN,DIRECT 7.1 mg/dL (0.1-0.5); BILIRUBIN,TOTAL 11.9 mg/dL (0.2-1.0); TOTAL PROTEIN 7.4 g/dL (6.7-8.2)
== END 2019-06-09 07:51 | disposition home or self-care (01) ==
LOC: LAB.S 07:50
PROVIDERS: ATTEND Internal Medicine
DX: C23 Malignant neoplasm of gallbladder (principal); K83.1 Obstruction of bile duct
CPT/HCPCS: 36415; 80076

== ENCOUNTER 2019-07-23 07:37 | Outpatient (CLI) | payer MEDICARE ==
[2019-07-23 09:51] LABS: BASOPHILS # (AUTO) 0.1 10^3/uL (0.0-0.1); BASOPHILS % (AUTO) 0.7 %; EOSINOPHILS # (AUTO) 0.2 10^3/uL (0.0-0.7); EOSINOPHILS % (AUTO) 1.7 %; HGB - HEMOGLOBIN 10.7 g/dL (14.0-18.0); LYMPHOCYTES # (AUTO) 1.4 10^3/uL (1.5-3.5); MEAN CORPUSCULAR HEMOGLOBIN 30.2 pg (27.0-31.0); MEAN CORPUSCULAR HGB CONC 32.9 g/dL (32.0-36.0); MEAN CORPUSCULAR VOLUME 91.8 fL (80.0-94.0); MEAN PLATELET VOLUME 12.3 fL (7.4-11.4); MONOCYTES # (AUTO) 0.8 10^3/uL (0.0-1.0); MONOCYTES % (AUTO) 8.4 %; NEUTROPHILS # (AUTO) 6.8 10^3/uL (1.5-6.6); NEUTROPHILS % (AUTO) 73.7 %; PLT - PLATELET COUNT 352 10^3/uL (130-450); RED BLOOD COUNT 3.54 10^6/uL (4.70-6.10); RED CELL DISTRIBUTION WIDTH 20.1 % (12.0-15.0); WHITE BLOOD COUNT 9.2 x10^3/uL (4.8-10.8)
[2019-07-23 10:14] LABS: ALBUMIN/GLOBULIN RATIO 0.4 (1.0-2.2); ALKALINE PHOSPHATASE 686 IU/L (42-121); ALT ALANINE AMINOTRANSFERASE < 10 IU/L (10-60); AST ASPARTATE AMINOTRANSFERASE 99 IU/L (10-42); BILIRUBIN,TOTAL 10.6 mg/dL (0.2-1.0); BUN - BLOOD UREA NITROGEN 16 mg/dL (6-20); CALCIUM 8.2 mg/dL (8.5-10.3); CARBON DIOXIDE - CO2 24 mmol/L (21-32); CHLORIDE 101 mmol/L (101-111); CREATININE 0.8 mg/dL (0.6-1.2); GLUCOSE 109 mg/dL (70-100); SODIUM 134 mmol/L (135-145); TOTAL PROTEIN 7.1 g/dL (6.7-8.2)
== END 2019-07-23 07:38 | disposition home or self-care (01) ==
LOC: LAB.S 07:37
PROVIDERS: ATTEND Internal Medicine
DX: C23 Malignant neoplasm of gallbladder (principal)
CPT/HCPCS: 36415; 80053; 85025

== ENCOUNTER 2019-08-25 08:00 | Outpatient (CLI) | payer MEDICARE ==
[2019-08-25 13:30] LABS: ALBUMIN 1.8 g/dL (3.2-5.5); ALBUMIN/GLOBULIN RATIO 0.3 (1.0-2.2); BILIRUBIN,TOTAL 9.7 mg/dL (0.2-1.0); CREATININE 0.9 mg/dL (0.6-1.2)
[2019-08-25 13:49] LABS: BASOPHILS # (AUTO) 0.1 10^3/uL (0.0-0.1); BASOPHILS % (AUTO) 0.9 %; EOSINOPHILS # (AUTO) 0.1 10^3/uL (0.0-0.7); HGB - HEMOGLOBIN 10.4 g/dL (14.0-18.0); LYMPHOCYTES # (AUTO) 1.2 10^3/uL (1.5-3.5); MEAN CORPUSCULAR HEMOGLOBIN 31.8 pg (27.0-31.0); MEAN CORPUSCULAR HGB CONC 34.2 g/dL (32.0-36.0); MONOCYTES # (AUTO) 0.7 10^3/uL (0.0-1.0); NEUTROPHILS # (AUTO) 4.7 10^3/uL (1.5-6.6); NEUTROPHILS % (AUTO) 68.7 %; PLT - PLATELET COUNT 352 10^3/uL (130-450); RED BLOOD COUNT 3.27 10^6/uL (4.70-6.10); RED CELL DISTRIBUTION WIDTH 19.7 % (12.0-15.0); WHITE BLOOD COUNT 6.9 x10^3/uL (4.8-10.8)
[2019-08-25 14:21] LABS: RBC MORPHOLOGY (MULTIPLE) 3+ ANISOCYTOSIS (NORMAL)
== END 2019-08-25 23:59 | disposition home or self-care (01) ==
LOC: LAB.WCP 08:00
PROVIDERS: ATTEND Internal Medicine
DX: C23 Malignant neoplasm of gallbladder (principal)
CPT/HCPCS: 36415; 80053; 85025

== ENCOUNTER 2019-11-11 10:32 | Outpatient (CLI) | payer MEDICARE ==
[2019-11-11 15:54] LABS: BASOPHILS # (AUTO) 0.1 10^3/uL (0.0-0.1); BASOPHILS % (AUTO) 0.7 %; EOSINOPHILS # (AUTO) 0.1 10^3/uL (0.0-0.7); EOSINOPHILS % (AUTO) 0.7 %; HGB - HEMOGLOBIN 9.1 g/dL (14.0-18.0); LYMPHOCYTES # (AUTO) 1.2 10^3/uL (1.5-3.5); LYMPHOCYTES % (AUTO) 16.3 %; MEAN CORPUSCULAR HEMOGLOBIN 31.8 pg (27.0-31.0); MEAN CORPUSCULAR HGB CONC 32.9 g/dL (32.0-36.0); MEAN CORPUSCULAR VOLUME 96.9 fL (80.0-94.0); MONOCYTES # (AUTO) 0.7 10^3/uL (0.0-1.0); NEUTROPHILS # (AUTO) 5.2 10^3/uL (1.5-6.6); PLT - PLATELET COUNT 307 10^3/uL (130-450); RED BLOOD COUNT 2.86 10^6/uL (4.70-6.10); WHITE BLOOD COUNT 7.2 x10^3/uL (4.8-10.8)
[2019-11-11 16:18] LABS: ALBUMIN 1.8 g/dL (3.2-5.5); ALBUMIN/GLOBULIN RATIO 0.3 (1.0-2.2); BILIRUBIN,TOTAL 8.8 mg/dL (0.2-1.0); CALCIUM 7.9 mg/dL (8.5-10.3); TOTAL PROTEIN 7.3 g/dL (6.7-8.2)
== END 2019-11-11 10:33 | disposition home or self-care (01) ==
LOC: LAB.S 10:32
PROVIDERS: ATTEND Family Medicine
DX: E80.6 Other disorders of bilirubin metabolism (principal); C22.1 Intrahepatic bile duct carcinoma; D64.9 Anemia, unspecified; K50.80 Crohn's disease of both small and large intestine without complications; G20 Parkinson's disease
CPT/HCPCS: 36415; 80053; 85025